=== PATIENT | male | born 1945 | race African-American/Black ===

== ENCOUNTER 2020-12-08 05:44 | Inpatient (IN) ==
[2020-12-02 12:18] LABS: Basophils % 0.5 % (0.0-0.8); Eosinophils # 0.1 10*3/uL (0.0-0.87); Eosinophils % 1.6 % (0.00-10.9); Hematocrit 45.7 VOL% (42.0-52.0); Hemoglobin 14.7 GM/DL (14.0-18.0); Immature Granulocytes % 0.5 %; Immature Granulocytes Absolute 0.02 #; Lymphocytes # 1.4 10*3/uL (1.4-4.0); Mean Corpuscular HGB Conc 32.2 GM/DL (32-36); Mean Corpuscular Volume 85.7 FL (87-102); Mean Platelet Volume 9.9 FL (9.6-12.0); Monocytes % 14.7 % (1.7-12.7); Neutrophils % 43.7 % (38.7-73.9); Platelet Count 181 T/CUMM (130-400); Red Blood Count 5.33 MC/CUMM (3.8-5.5); Red Cell Distribution Width 14.7 % (9.3-17.3); White Blood Count 3.7 T/CUMM (4-12)
[2020-12-02 12:36] LABS: Calcium 8.9 MG/DL (8.5-10.1); Osmolality,Calculated 280.4 MOS/KG (273-304); Potassium 3.6 MMOL/L (3.5-5.1)
[2020-12-02 12:52] LABS: Bacteria,Urine Occasional /HPF (Few); Bilirubin,Urine Negative (Negative); Blood, Urine Negative (Negative); Glucose,Urine (UA) Negative (Negative); Ketones,Urine Negative (Negative); Mucus,Urine Occasional /LPF (Occasional); Nitrite,Urine Negative (Negative); Protein,Urine Negative; RBC,Urine 1 /HPF (0-4); Urine Appearance CLEAR (Clear); Urine Color Yellow (Yellow); WBC,Urine <1 /HPF (0-6)
[2020-12-08] MEDS: LACTATED RINGERS 1,000 ML IV SCH ×2 (06:27→09:00)
[2020-12-08] MEDS ORDERED: cefTRIAXone 1,000 MG in SYRINGE 1 EACH IV ONE (06:30)
[2020-12-08] MEDS ORDERED: ALVIMOPAN 12 MG CAPSULE PO ONE (06:30)
[2020-12-08] MEDS ORDERED: SODIUM PHOSPHATE ENEMA 133 ML BOTTLE RECTAL ONE (06:30)
[2020-12-08] MEDS ORDERED: LIDOCAINE 2% 5 ML VIAL ONE (06:31)
[2020-12-08] MEDS ORDERED: ROCURONIUM 50 MG/5 ML VIAL IV ONE (06:31)
[2020-12-08] MEDS ORDERED: ONDANSETRON 4 MG/2 ML VIAL ONE (06:31)
[2020-12-08] MEDS ORDERED: propofoL 200 MG/20 ML VIAL IV ONE (06:31)
[2020-12-08] MEDS ORDERED: fentaNYL 100 MCG/2 ML VIAL ONE ×2 (06:32→11:20)
[2020-12-08] MEDS ORDERED: ePHEDrine 50 MG/ML VIAL ONE ×2 (06:34→09:21)
[2020-12-08] MEDS ORDERED: IPRATROPIUM 500 MCG/2.5 ML NEB RESP TX ONE (06:35)
[2020-12-08] MEDS ORDERED: DIAZEPAM 5 MG TABLET PO ONE (06:35)
[2020-12-08] MEDS ORDERED: FAMOTIDINE 20 MG TABLET PO ONE (06:35)
[2020-12-08] MEDS ORDERED: ACETAMINOPHEN 1,000 MG/100 ML VIAL IV ONE (08:09)
[2020-12-08] MEDS ORDERED: LACTATED RINGERS 1,000 ML IV ONE (08:09)
[2020-12-08] MEDS ORDERED: GLYCOPYRROLATE 0.4 MG/2 ML VIAL ONE (08:09)
[2020-12-08] MEDS ORDERED: SUGAMMADEX 200 MG/2 ML VIAL IV ONE (10:45)
[2020-12-08] MEDS ORDERED: ALPRAZolam 0.5 MG TABLET PO PRN (11:39)
[2020-12-08] MEDS ORDERED: COLCHICINE 0.6 MG CAPSULE PO PRN (11:39)
[2020-12-08] MEDS ORDERED: SEVOFLURANE 1 UNIT/15 MINUTE INH ONE (11:41)
[2020-12-08 12:02] LABS: Amorphous Crystals,Urine Few /HPF (Few); Bacteria,Urine Occasional /HPF (Few); Bilirubin,Urine Negative (Negative); Blood, Urine Small mg/dL (Negative); Glucose,Urine (UA) Negative (Negative); Ketones,Urine Negative (Negative); Nitrite,Urine Negative (Negative); Protein,Urine Negative; RBC,Urine 4 /HPF (0-4); Urine Appearance CLEAR (Clear); Urine Color Yellow (Yellow); Urine Urobilinogen < 2.0 EU/DL (0.2-1.0)
[2020-12-08] MEDS ORDERED: ONDANSETRON 4 MG/2 ML VIAL IV PRN (12:18)
[2020-12-08] MEDS: HYDROmorphone 2 MG/1 ML VIAL IV PRN ×4 (12:20→18:11)
[2020-12-08] MEDS ORDERED: ALBUTEROL 2.5 MG/3 ML NEB RESP TX PRN (15:00)
[2020-12-08] MEDS: SODIUM CHLORIDE 0.9% 1,000 ML IV SCH (15:10)
[2020-12-08] MEDS: OXYBUTYNIN XL 10 MG TABLET PO SCH (15:10)
[2020-12-08] MEDS: ONDANSETRON 4 MG/2 ML VIAL IV PRN (16:33)
[2020-12-08] MEDS: MONTELUKAST 10 MG TABLET PO SCH (20:29)
[2020-12-08] MEDS: ALVIMOPAN 12 MG CAPSULE PO SCH (20:29)
[2020-12-09] MEDS: oxyCODONE/ACETAMINOPHEN 5-325 MG TABLET PO PRN (00:11)
[2020-12-09] MEDS: hydrOXYzine HCL 10 MG TABLET PO PRN ×2 (01:12→21:31)
[2020-12-09] MEDS: SODIUM CHLORIDE 0.9% 1,000 ML IV SCH ×2 (03:42→18:14)
[2020-12-09 05:26] LABS: Basophils % 0.1 % (0.0-0.8); Hemoglobin 10.3 GM/DL (14.0-18.0); Immature Granulocytes % 0.4 %; Immature Granulocytes Absolute 0.03 #; Lymphocytes # 1.2 10*3/uL (1.4-4.0); Lymphocytes % 14.6 % (21.2-54.2); Mean Corpuscular HGB Conc 31.2 GM/DL (32-36); Mean Platelet Volume 10.2 FL (9.6-12.0); Monocytes % 15.9 % (1.7-12.7); Platelet Count 180 T/CUMM (130-400); Red Blood Count 3.75 MC/CUMM (3.8-5.5); Red Cell Distribution Width 14.6 % (9.3-17.3); White Blood Count 8.2 T/CUMM (4-12)
[2020-12-09 05:46] LABS: Calcium 7.7 MG/DL (8.5-10.1); Potassium 4.2 MMOL/L (3.5-5.1)
[2020-12-09 06:07] LABS: Hypochromasia 2+; Lymphocytes 14 % (20-55); Platelet Estimate Normal; Segmented Neutrophils 73 % (50-85); Total Cells Counted 100
[2020-12-09] MEDS: FLUTICASONE 50 MCG NASAL SPRAY 16 GM BOTTLE BOTH NARES SCH (08:49)
[2020-12-09] MEDS: FLUoxetine 20 MG CAPSULE PO SCH (08:50)
[2020-12-09] MEDS: hydroCHLOROthiazide 25 MG TABLET PO SCH (08:50)
[2020-12-09] MEDS: OXYBUTYNIN XL 10 MG TABLET PO SCH (08:51)
[2020-12-09] MEDS: FEBUXOSTAT 80 MG TABLET PO SCH (08:51)
[2020-12-09] MEDS: MONTELUKAST 10 MG TABLET PO SCH ×2 (08:51→21:11)
[2020-12-09] MEDS: PANTOPRAZOLE 40 MG TABLET PO SCH (08:51)
[2020-12-09] MEDS: POTASSIUM CHLORIDE 10 MEQ TABLET PO SCH (08:51)
[2020-12-09] MEDS: ALVIMOPAN 12 MG CAPSULE PO SCH ×2 (08:51→21:11)
[2020-12-09] MEDS: TIOTROPIUM OLODATEROL INH SCH (08:56)
[2020-12-09] MEDS ORDERED: SODIUM CHLORIDE 0.9% 500 ML IV ONE (09:46)
[2020-12-09] MEDS: atenoloL 25 MG TABLET PO SCH (10:51)
[2020-12-09] MEDS: CETIRIZINE 10 MG TABLET PO SCH (11:13)
[2020-12-09] MEDS: ACETAMINOPHEN 500 MG TABLET PO PRN ×2 (12:12→21:11)
[2020-12-10 05:37] LABS: Basophils % 0.3 % (0.0-0.8); Eosinophils # 0.1 10*3/uL (0.0-0.87); Eosinophils % 0.8 % (0.00-10.9); Hematocrit 27.7 VOL% (42.0-52.0); Hemoglobin 8.8 GM/DL (14.0-18.0); Immature Granulocytes % 0.5 %; Immature Granulocytes Absolute 0.04 #; Lymphocytes # 1.5 10*3/uL (1.4-4.0); Mean Corpuscular HGB Conc 31.8 GM/DL (32-36); Mean Corpuscular Volume 86.8 FL (87-102); Mean Platelet Volume 10.6 FL (9.6-12.0); Monocytes % 19.5 % (1.7-12.7); Neutrophils % 59.9 % (38.7-73.9); Platelet Count 151 T/CUMM (130-400); Red Blood Count 3.19 MC/CUMM (3.8-5.5); Red Cell Distribution Width 14.3 % (9.3-17.3); White Blood Count 7.7 T/CUMM (4-12)
[2020-12-10 07:08] LABS: Eosinophils 1 % (0-10); Lymphocytes 17 % (20-55); Platelet Estimate Adequate; Segmented Neutrophils 61 % (50-85); Total Cells Counted 100
[2020-12-10] MEDS: FLUoxetine 20 MG CAPSULE PO SCH (09:28)
[2020-12-10] MEDS: OXYBUTYNIN XL 10 MG TABLET PO SCH (09:28)
[2020-12-10] MEDS: hydroCHLOROthiazide 25 MG TABLET PO SCH (09:28)
[2020-12-10] MEDS: ALVIMOPAN 12 MG CAPSULE PO SCH ×2 (09:28→20:41)
[2020-12-10] MEDS: FEBUXOSTAT 80 MG TABLET PO SCH (09:28)
[2020-12-10] MEDS: atenoloL 25 MG TABLET PO SCH (09:29)
[2020-12-10] MEDS: POTASSIUM CHLORIDE 10 MEQ TABLET PO SCH (09:29)
[2020-12-10] MEDS: FLUTICASONE 50 MCG NASAL SPRAY 16 GM BOTTLE BOTH NARES SCH (09:29)
[2020-12-10] MEDS: MONTELUKAST 10 MG TABLET PO SCH ×2 (09:29→20:41)
[2020-12-10] MEDS: CETIRIZINE 10 MG TABLET PO SCH (09:29)
[2020-12-10] MEDS: PANTOPRAZOLE 40 MG TABLET PO SCH (09:29)
[2020-12-10] MEDS: SODIUM CHLORIDE 0.9% 1,000 ML IV SCH (09:30)
[2020-12-10] MEDS: TIOTROPIUM OLODATEROL INH SCH (12:17)
[2020-12-10] MEDS: ACETAMINOPHEN 500 MG TABLET PO PRN (13:14)
[2020-12-10] MEDS: METOCLOPRAMIDE 10 MG/2 ML VIAL IV SCH ×2 (13:15→18:56)
[2020-12-10] MEDS: ONDANSETRON 4 MG/2 ML VIAL IV PRN (17:04)
[2020-12-10] MEDS ORDERED: PROMETHAZINE 25 MG/1 ML VIAL IM PRN (17:50)
[2020-12-11] MEDS: METOCLOPRAMIDE 10 MG/2 ML VIAL IV SCH ×4 (00:40→17:27)
[2020-12-11 05:00] LABS: Hematocrit 26.7 VOL% (42.0-52.0); Hemoglobin 8.6 GM/DL (14.0-18.0)
[2020-12-11 07:57] LABS: Osmolality,Calculated 270.2 MOS/KG (273-304); Potassium 3.6 MMOL/L (3.5-5.1)
[2020-12-11] MEDS: POTASSIUM CHLORIDE 10 MEQ TABLET PO SCH (09:23)
[2020-12-11] MEDS: atenoloL 25 MG TABLET PO SCH (09:23)
[2020-12-11] MEDS: CETIRIZINE 10 MG TABLET PO SCH (09:23)
[2020-12-11] MEDS: hydroCHLOROthiazide 25 MG TABLET PO SCH (09:23)
[2020-12-11] MEDS: ALVIMOPAN 12 MG CAPSULE PO SCH ×2 (09:23→21:45)
[2020-12-11] MEDS: FLUTICASONE 50 MCG NASAL SPRAY 16 GM BOTTLE BOTH NARES SCH (09:24)
[2020-12-11] MEDS: FEBUXOSTAT 80 MG TABLET PO SCH (09:24)
[2020-12-11] MEDS: MONTELUKAST 10 MG TABLET PO SCH ×2 (09:24→21:46)
[2020-12-11] MEDS: OXYBUTYNIN XL 10 MG TABLET PO SCH (09:24)
[2020-12-11] MEDS: FLUoxetine 20 MG CAPSULE PO SCH (09:24)
[2020-12-11] MEDS: PANTOPRAZOLE 40 MG TABLET PO SCH (09:24)
[2020-12-11] MEDS: oxyCODONE/ACETAMINOPHEN 5-325 MG TABLET PO PRN ×2 (09:28→21:46)
[2020-12-11] MEDS ORDERED: BISACODYL 10 MG SUPP RECTAL ONE (09:35)
[2020-12-11] MEDS: TIOTROPIUM OLODATEROL INH SCH (09:45)
[2020-12-11] MEDS ORDERED: MAGNESIUM SULF RIDER 4 GM in PREMIX 1 EACH IV PRN (10:40)
[2020-12-11] MEDS ORDERED: POTASSIUM CHLORIDE RIDER 10 MEQ in PREMIX 1 EACH IV PRN (10:40)
[2020-12-11] MEDS ORDERED: MAGNESIUM SULF RIDER 2 GM in PREMIX 1 EACH IV PRN (10:40)
[2020-12-11] MEDS ORDERED: POTASSIUM CHLORIDE RIDER 10 MEQ in PREMIX 1 EACH IV ONE (11:00)
[2020-12-11] MEDS: ACETAMINOPHEN 500 MG TABLET PO PRN (17:37)
[2020-12-12] MEDS: METOCLOPRAMIDE 10 MG/2 ML VIAL IV SCH ×4 (00:05→17:13)
[2020-12-12 06:30] LABS: Basophils % 0.3 % (0.0-0.8); Eosinophils # 0.1 10*3/uL (0.0-0.87); Eosinophils % 2.1 % (0.00-10.9); Hematocrit 26.8 VOL% (42.0-52.0); Hemoglobin 8.5 GM/DL (14.0-18.0); Immature Granulocytes % 0.5 %; Immature Granulocytes Absolute 0.03 #; Lymphocytes # 1.1 10*3/uL (1.4-4.0); Lymphocytes % 18.3 % (21.2-54.2); Mean Corpuscular HGB Conc 31.7 GM/DL (32-36); Mean Corpuscular Volume 87.3 FL (87-102); Monocytes % 17.5 % (1.7-12.7); Neutrophils % 61.3 % (38.7-73.9); Platelet Count 188 T/CUMM (130-400); Red Blood Count 3.07 MC/CUMM (3.8-5.5); White Blood Count 6.1 T/CUMM (4-12)
[2020-12-12 06:33] LABS: Calcium 8.4 MG/DL (8.5-10.1); Potassium 3.5 MMOL/L (3.5-5.1)
[2020-12-12 07:16] LABS: Band Neutrophils 2 % (0-10); Eosinophils 4 % (0-10); Hypochromasia 1+; Lymphocytes 18 % (20-55); Metamyelocytes 2 %; Segmented Neutrophils 70 % (50-85); Total Cells Counted 100
[2020-12-12 07:17] LABS: Platelet Estimate Adequate
[2020-12-12 08:20] LABS: Basophils % 0.2 % (0.0-0.8); Eosinophils # 0.2 10*3/uL (0.0-0.87); Eosinophils % 2.3 % (0.00-10.9); Hematocrit 29.2 VOL% (42.0-52.0); Hemoglobin 9.3 GM/DL (14.0-18.0); Immature Granulocytes % 0.6 %; Immature Granulocytes Absolute 0.04 #; Lymphocytes # 1.2 10*3/uL (1.4-4.0); Lymphocytes % 19.2 % (21.2-54.2); Mean Corpuscular HGB Conc 31.8 GM/DL (32-36); Mean Corpuscular Volume 87.4 FL (87-102); Mean Platelet Volume 9.2 FL (9.6-12.0); Monocytes % 16.5 % (1.7-12.7); Neutrophils % 61.2 % (38.7-73.9); Platelet Count 208 T/CUMM (130-400); Red Blood Count 3.34 MC/CUMM (3.8-5.5); Red Cell Distribution Width 14.1 % (9.3-17.3); White Blood Count 6.4 T/CUMM (4-12)
[2020-12-12] MEDS: hydroCHLOROthiazide 25 MG TABLET PO SCH (08:30)
[2020-12-12] MEDS: ACETAMINOPHEN 500 MG TABLET PO PRN (08:34)
[2020-12-12] MEDS: ONDANSETRON 4 MG/2 ML VIAL IV PRN (08:34)
[2020-12-12] MEDS: OXYBUTYNIN XL 10 MG TABLET PO SCH (08:34)
[2020-12-12] MEDS: CETIRIZINE 10 MG TABLET PO SCH (08:34)
[2020-12-12] MEDS: FEBUXOSTAT 80 MG TABLET PO SCH (08:35)
[2020-12-12] MEDS: POTASSIUM CHLORIDE 10 MEQ TABLET PO SCH (08:35)
[2020-12-12] MEDS: FLUoxetine 20 MG CAPSULE PO SCH (08:35)
[2020-12-12] MEDS: PANTOPRAZOLE 40 MG TABLET PO SCH (08:35)
[2020-12-12] MEDS: MONTELUKAST 10 MG TABLET PO SCH ×2 (08:35→21:28)
[2020-12-12] MEDS: FLUTICASONE 50 MCG NASAL SPRAY 16 GM BOTTLE BOTH NARES SCH (08:35)
[2020-12-12] MEDS: atenoloL 25 MG TABLET PO SCH (08:35)
[2020-12-12] MEDS: TIOTROPIUM OLODATEROL INH SCH (08:37)
[2020-12-12] MEDS: ALVIMOPAN 12 MG CAPSULE PO SCH ×2 (08:37→21:28)
[2020-12-12 08:47] LABS: Anisocytosis 1+; Band Neutrophils 1 % (0-10); Eosinophils 1 % (0-10); Lymphocytes 15 % (20-55); Platelet Estimate Normal; Polychromasia Slight; Segmented Neutrophils 67 % (50-85); Total Cells Counted 100
[2020-12-12] MEDS: POTASSIUM CHLORIDE RIDER 10 MEQ in PREMIX 1 EACH IV SCH ×2 (10:15→11:10)
[2020-12-12] MEDS: oxyCODONE/ACETAMINOPHEN 5-325 MG TABLET PO PRN ×2 (14:10→21:28)
[2020-12-12 14:28] LABS: Hematocrit 28.6 VOL% (42.0-52.0); Hemoglobin 9.1 GM/DL (14.0-18.0)
[2020-12-13] MEDS: METOCLOPRAMIDE 10 MG/2 ML VIAL IV SCH ×4 (00:22→18:48)
[2020-12-13 05:32] LABS: Basophils % 0.3 % (0.0-0.8); Eosinophils # 0.2 10*3/uL (0.0-0.87); Eosinophils % 2.1 % (0.00-10.9); Hematocrit 30.1 VOL% (42.0-52.0); Hemoglobin 9.6 GM/DL (14.0-18.0); Immature Granulocytes % 0.7 %; Immature Granulocytes Absolute 0.05 #; Lymphocytes % 27.1 % (21.2-54.2); Mean Corpuscular HGB Conc 31.9 GM/DL (32-36); Mean Platelet Volume 9.9 FL (9.6-12.0); Monocytes % 18.7 % (1.7-12.7); Neutrophils % 51.1 % (38.7-73.9); Platelet Count 247 T/CUMM (130-400); Red Blood Count 3.46 MC/CUMM (3.8-5.5); White Blood Count 7.5 T/CUMM (4-12)
[2020-12-13 05:42] LABS: Calcium 8.7 MG/DL (8.5-10.1); Potassium 3.4 MMOL/L (3.5-5.1)
[2020-12-13 05:57] LABS: Eosinophils 4 % (0-10); Hypochromasia 1+; Lymphocytes 27 % (20-55); Microcytosis 1+; Platelet Estimate Adequate; Segmented Neutrophils 48 % (50-85); Total Cells Counted 100
[2020-12-13 05:58] LABS: Atypical Lymphocytes Few
[2020-12-13] MEDS: oxyCODONE/ACETAMINOPHEN 5-325 MG TABLET PO PRN (06:12)
[2020-12-13] MEDS ORDERED: POTASSIUM CHLORIDE RIDER 20 MEQ in PREMIX 1 EACH IV PRN (07:26)
[2020-12-13] MEDS ORDERED: POTASSIUM CHLORIDE RIDER 10 MEQ in PREMIX 1 EACH IV PRN (07:26)
[2020-12-13] MEDS: POTASSIUM CHLORIDE 10 MEQ TABLET PO SCH (14:50)
[2020-12-13] MEDS: ALVIMOPAN 12 MG CAPSULE PO SCH ×2 (14:50→21:25)
[2020-12-13] MEDS: MONTELUKAST 10 MG TABLET PO SCH ×2 (14:50→21:25)
[2020-12-13] MEDS: PANTOPRAZOLE 40 MG TABLET PO SCH (14:50)
[2020-12-13] MEDS: hydroCHLOROthiazide 25 MG TABLET PO SCH (14:50)
[2020-12-13] MEDS: atenoloL 25 MG TABLET PO SCH (14:50)
[2020-12-13] MEDS: FLUoxetine 20 MG CAPSULE PO SCH (14:50)
[2020-12-13] MEDS: CETIRIZINE 10 MG TABLET PO SCH (14:50)
[2020-12-13] MEDS: TIOTROPIUM OLODATEROL INH SCH (14:51)
[2020-12-13] MEDS: OXYBUTYNIN XL 10 MG TABLET PO SCH (14:51)
[2020-12-13] MEDS: FEBUXOSTAT 80 MG TABLET PO SCH (14:51)
[2020-12-13] MEDS ORDERED: POTASSIUM CHLORIDE 20 MEQ TABLET PO ONE (15:07)
[2020-12-13] MEDS ORDERED: SODIUM CHLOR 0.9% KCL 20 MEQ 20 MEQ/1,000 ML BAG IV SCH (15:30)
[2020-12-13] MEDS: FLUTICASONE 50 MCG NASAL SPRAY 16 GM BOTTLE BOTH NARES SCH (16:26)
[2020-12-14] MEDS: METOCLOPRAMIDE 10 MG/2 ML VIAL IV SCH ×5 (00:35→23:07)
[2020-12-14 05:31] LABS: Basophils % 0.5 % (0.0-0.8); Eosinophils # 0.1 10*3/uL (0.0-0.87); Eosinophils % 1.7 % (0.00-10.9); Hematocrit 28.5 VOL% (42.0-52.0); Immature Granulocytes % 0.9 %; Immature Granulocytes Absolute 0.06 #; Lymphocytes # 1.3 10*3/uL (1.4-4.0); Lymphocytes % 20.5 % (21.2-54.2); Mean Corpuscular HGB Conc 31.6 GM/DL (32-36); Mean Corpuscular Volume 87.4 FL (87-102); Mean Platelet Volume 9.7 FL (9.6-12.0); Monocytes % 18.8 % (1.7-12.7); Neutrophils % 57.6 % (38.7-73.9); Platelet Count 240 T/CUMM (130-400); Red Blood Count 3.26 MC/CUMM (3.8-5.5); Red Cell Distribution Width 14.3 % (9.3-17.3); White Blood Count 6.4 T/CUMM (4-12)
[2020-12-14 05:36] LABS: Calcium 8.4 MG/DL (8.5-10.1); Osmolality,Calculated 274.8 MOS/KG (273-304); Potassium 3.5 MMOL/L (3.5-5.1)
[2020-12-14] MEDS: ACETAMINOPHEN 500 MG TABLET PO PRN ×3 (05:41→23:07)
[2020-12-14 05:57] LABS: Hypochromasia 1+; Lymphocytes 21 % (20-55); Microcytosis 1+; Platelet Estimate Adequate; Segmented Neutrophils 65 % (50-85); Total Cells Counted 100
[2020-12-14] MEDS: POTASSIUM CHLORIDE 10 MEQ TABLET PO SCH (10:01)
[2020-12-14] MEDS: ALVIMOPAN 12 MG CAPSULE PO SCH ×2 (10:01→21:17)
[2020-12-14] MEDS: hydroCHLOROthiazide 25 MG TABLET PO SCH (10:01)
[2020-12-14] MEDS: PANTOPRAZOLE 40 MG TABLET PO SCH (10:01)
[2020-12-14] MEDS: OXYBUTYNIN XL 10 MG TABLET PO SCH (10:01)
[2020-12-14] MEDS: CETIRIZINE 10 MG TABLET PO SCH (10:02)
[2020-12-14] MEDS: FEBUXOSTAT 80 MG TABLET PO SCH (10:02)
[2020-12-14] MEDS: FLUoxetine 20 MG CAPSULE PO SCH (10:02)
[2020-12-14] MEDS: MONTELUKAST 10 MG TABLET PO SCH ×2 (10:02→21:17)
[2020-12-14] MEDS: FLUTICASONE 50 MCG NASAL SPRAY 16 GM BOTTLE BOTH NARES SCH (10:03)
[2020-12-14] MEDS: atenoloL 25 MG TABLET PO SCH (10:04)
[2020-12-14] MEDS: TIOTROPIUM OLODATEROL INH SCH (10:13)
[2020-12-15] MEDS: METOCLOPRAMIDE 10 MG/2 ML VIAL IV SCH (05:27)
[2020-12-15 07:34] VITALS: BP 135/74
[2020-12-15] MEDS: ONDANSETRON 4 MG/2 ML VIAL IV PRN (08:27)
[2020-12-15] MEDS: hydroCHLOROthiazide 25 MG TABLET PO SCH (09:29)
[2020-12-15] MEDS: MONTELUKAST 10 MG TABLET PO SCH (09:29)
[2020-12-15] MEDS: POTASSIUM CHLORIDE 10 MEQ TABLET PO SCH (09:30)
[2020-12-15] MEDS: atenoloL 25 MG TABLET PO SCH (09:30)
[2020-12-15] MEDS: OXYBUTYNIN XL 10 MG TABLET PO SCH (09:30)
[2020-12-15] MEDS: PANTOPRAZOLE 40 MG TABLET PO SCH (09:30)
[2020-12-15] MEDS: CETIRIZINE 10 MG TABLET PO SCH (09:30)
[2020-12-15] MEDS: FLUoxetine 20 MG CAPSULE PO SCH (09:30)
[2020-12-15] MEDS: FEBUXOSTAT 80 MG TABLET PO SCH (09:30)
[2020-12-15] MEDS: ALVIMOPAN 12 MG CAPSULE PO SCH (09:30)
[2020-12-15] MEDS: FLUTICASONE 50 MCG NASAL SPRAY 16 GM BOTTLE BOTH NARES SCH (09:31)
== END 2020-12-15 11:58 | disposition home health service (06) | DRG 707 ==
LOC: N.OR 05:44 → N.SDSINP 05:44 → N.4E 13:15
PROVIDERS: ADMIT Urology; ATTEND Urology